=== PATIENT | female | born 1965 | race Caucasian/White ===

== ENCOUNTER 2023-11-28 18:05 | Emergency (ER) | payer SELFPAY ==
[~2023-11-28] VITALS: Ht 160 cm; Wt 64.0 kg
[2023-11-28 18:08] VITALS: O2SAT 98
[2023-11-28] MEDS ORDERED: KETOROLAC 30MG/ML VIAL IM ONE (19:00)
[2023-11-28] MEDS ORDERED: ACETAMINOPHEN 325MG TABLET PO ONE (19:00)
[2023-11-28] MEDS ORDERED: LIDOCAINE HCL/EPINEPHRINE 1%-EPI 1:100,000 20ML VIAL INFIL NR (19:00)
[2023-11-28] MEDS ORDERED: BACITRACIN ZINC OINT UDPKT TOP ONE (19:30)
[2023-11-28] MEDS ORDERED: TETANUS, DIPHTHERIA, PERTUSSIS VAC/PF 0.5ML (>10YR OLD) IM ONE (19:30)
[2023-11-28] MEDS ORDERED: LIDOCAINE HCL/EPINEPHRINE 1%-EPI 1:100,000 20ML VIAL INFIL ONE (19:30)
[2023-11-28] MEDS ORDERED: BACITRACIN ZINC OINT UDPKT TOP NR (19:30)
[2023-11-28] MEDS: ACETAMINOPHEN 325MG TABLET PO NR (21:52)
[2023-11-28] MEDS: KETOROLAC 30MG/ML VIAL IM NR (21:53)
[2023-11-28] MEDS: TETANUS, DIPHTHERIA, PERTUSSIS VAC/PF 0.5ML (>10YR OLD) IM ONE (22:05)
[2023-11-28 23:36] VITALS: BP 136/87; PULSE 82; RESP 18; TEMP 36.66960; O2SAT 98
== END 2023-11-28 23:37 | disposition home or self-care (01) ==
LOC: ER 18:05
DX: S01.81XA Laceration without foreign body of other part of head, initial encounter (principal); S93.401A Sprain of unspecified ligament of right ankle, initial encounter; E11.9 Type 2 diabetes mellitus without complications; W01.0XXA Fall on same level from slipping, tripping and stumbling without subsequent striking against object, initial encounter; Y93.01 Activity, walking, marching and hiking; Y92.89 Other specified places as the place of occurrence of the external cause; Y99.8 Other external cause status
CPT/HCPCS: 73600; 70450; 72125; 90715; 12011; 90471; 96372; 99285; J1885; J3490; Z7610 ×3